=== PATIENT | female | born 1975 | race Caucasian/White ===

== ENCOUNTER 2019-05-06 11:36 | Emergency (ER) | payer OTHER, SELFPAY ==
[2019-05-06 11:37] VITALS: BP 215/118; PULSE 107; RESP 19; TEMP 37.1; O2SAT 98; BMI 22.4
--- NOTE | 2019-05-06 11:47 | US_ITS ---
STUDY: ABDOMINAL ULTRASOUND - RIGHT UPPER QUADRANT REASON FOR VISIT: Female, 43 years old 3 day history of epigastric pain. TECHNIQUE: Ultrasound evaluation of the right upper quadrant was performed with real-time and static lugo-scale imaging. TECHNICAL QUALITY: Adequate. COMPARISON: None. FINDINGS: Liver: The liver measures 17.0 cm. There is normal echogenicity of the liver. The bile ducts are within normal limits. There is hepatic color flow. The direction of portal flow is hepatopetal. There is no demonstrated mass lesion. Gallbladder: Normal distended gallbladder. The gallbladder wall measures 2.8 mm. There is a negative sonographic España's sign. There is no pericholecystic fluid. There are no gallstones. Common Bile Duct (C.B.D.): The common bile duct measures 3 mm. Pancreas: Normal size of the head, body and tail of the pancreas. There is normal echogenicity of the pancreas. There is no demonstrated pancreatic mass or cyst. Right Kidney: Normal size of the right kidney. The right kidney measures 12.6 cm x 6.8 cm x 3.9 cm. Normal renal cortex. The right cortex measures 1.2 cm. There is a 1.6 cm x 1.4 cm x 0.9 cm right renal cyst. There is no right hydronephrosis. US/Abdomen Limited IMPRESSION: Right renal cyst. Electronically Signed: Santos Espitia, at 13:29 EDT , Service support ,
--- NOTE | 2019-05-06 11:47 | EKG12_ITS ---
Test Reason : ABD PAIN Blood Pressure : / mmHG Vent. Rate : 096 BPM Atrial Rate : 096 BPM P-R Int : 160 ms QRS Dur : 100 ms QT Int : 352 ms P-R-T Axes : 060 022 049 degrees QTc Int : 444 ms Normal sinus rhythm Normal ECG Confirmed by PAMELA PRIEST ([id number]), telegraph editor MANJULA RODRIGUEZ ([id number]) on 05/13/2019 9:08:37 AM Referred By: JON Confirmed By:PAMELA PRIEST
--- NOTE | 2019-05-06 12:07 | ED.VIS.GEN ---
History of Present Illness Chief Complaint: Abd Pain Informant: Patient Onset: Days Context: Gradual Onset Timing: Continuous Current Severity: Moderate Maximum Severity: Moderate Narrative: The patient presents to the emergency department nausea, midepigastric pain in the right upper quadrant, and generalized illness for the past 3 days. States she was began on Monday. She states she had a burning pain in the midepigastric area and right upper quadrant. She states that it decreased in frequency, but then returned over the past 24 hours. She has not had any vomiting. She does not think she had fever. She states that she gets pain almost immediately if she drinks. She states she will occasionally use alcohol but denies any recent alcohol use. She is had prior history of and tubal ligation, but no other abdominal surgery. Prior similar symptoms: No Recent Illness/Hospitalization: No Past Medical History - Allergies and Home Meds Allergies/Adverse Reactions: Allergies No Known Allergies Allergy (Verified 05/06/19 11:37) Primary Care Physician: Ashley Mendez MD [STAFF PHYSICIAN] - Prior records reviewed: Yes Past Medical History: - - , hypertension Surgical History: - Review of Systems General: Denies: Chills, Fever, Sweats Eyes: Denies: Visual changes - bilaterally, Diplopia ENT: Denies: Rhinorrhea, Sore throat Cardiovascular: Denies: Chest pain, Palpitations Respiratory: Denies: Dyspnea, Cough, Dyspnea on exertion Gastrointestinal: Reports: Abdominal pain, Nausea, Vomiting. Denies: Diarrhea, Melena, Hematochezia Genitourinary: Denies: Dysuria, Hematuria, Frequency Musculoskeletal: Denies: Back pain, Extremity Pain Skin: Denies: Rash, Wounds Neurological: Denies: Headache, Weakness, Numbness Physical Exam Vital Signs/Narrative: Vital Signs Temp Pulse Resp BP Pulse Ox 05/06/19 11:37 98.8 F 107 H 19 H 215/118 H 98 Inital Vital Signs reviewed: Yes General: Well nourished, Well developed, No Acute Distress Head: Normocephalic, Atraumatic Eyes: Perrl, EOMI ENT: Moist mucous membranes, No rhinorrhea Neck: Supple, Nontender Cardiovascular: Regular rate, Regular rhythm, No murmurs Respiratory: No distress, CTA bilaterally, Chest nontender Abdomen: Soft, Nondistended, Normal bowel sounds, Tender, España's sign. Negative for: Guarding, Rebound tenderness Back: Nontender, Normal Inspection Extremities: Nontender, No edema Skin: Normal color, No rash Neurological: Alert, Oriented x3, Cranial nerves II-XII grossly intact, Normal Strength, Normal Sensation Psychological: Normal affect, Normal Mood Diagnostic/Tx/Re-eval Clinical Impression(s) from Imaging Studies Abdomen Ultrasound 05/06/19 11:47 IMPRESSION: Right renal cyst. Electronically Signed: Santos Chatmanmeliton, at 13:29 EDT , Service support , Abdomen/Pelvis CT 05/06/19 13:47 IMPRESSION: Prominence of the periportal markings suggestive of periportal edema seen in hepatitis. Clinical correlation is recommended. Heterogeneous enlargement of the uterus as described. Correlation with ultrasound the pelvis is recommended. Electronically Signed: Santos Nupur, at 15:05 EDT , Service support , Abnormal Lab Results 05/06/19 05/06/19 05/06/19 12:15 12:20 12:20 WBC 7.8 RBC 4.07 L Hgb 13.9 Hct 41.6 MCV 102.2 H MCH 34.2 H MCHC 33.4 RDW Std Deviation 45.0 H RDW Coeff of Nick 11.9 Plt Count 244 MPV 9.4 Immature Gran % (Auto) 0.300 Neut % (Auto) 62.7 Lymph % (Auto) 26.1 Mellette % (Auto) 6.5 Eos % (Auto) 3.9 Baso % (Auto) 0.5 Absolute Neuts (auto) 4.9 Absolute Lymphs (auto) 2.03 Nucleated RBC % 0 Sodium 142 Potassium 3.2 L Chloride 109 H Carbon Dioxide 28.0 Anion Gap 5 BUN 13 Creatinine 0.75 Estim Creat Clear Calc 85.24 Est GFR (MDRD) Af Amer 108 Est GFR (MDRD) Non-Af 89 BUN/Creatinine Ratio 17.4 Glucose 118 H Calcium 8.8 Total Bilirubin 0.20 Direct Bilirubin 0.06 AST 17 ALT 17 Alkaline Phosphatase 62 Total Protein 6.6 Albumin 3.7 Globulin 2.9 Lipase 230 Urine Color Yellow Urine Clarity Sl. Cloudy Urine pH 6.0 Ur Specific Wilmore 1.020 Urine Protein 30 H Urine Glucose (UA) Normal Urine Ketones Negative Urine Occult Blood 25 H Urine Nitrite Negative Urine Bilirubin Negative Urine Urobilinogen Normal Ur Leukocyte Esterase Negative Urine RBC 0-5 SEEN Urine WBC 0 SEEN Ur Squamous Epith Cells 0 SEEN Urine Bacteria RARE Urine Mucus 1+ - Medical Decision Making The patient presents with midepigastric pain in the right upper quadrant. She was nauseated without vomiting. She states this feels like her hiatal hernia. She had a questionable España sign on examination and still has a gallbladder. IV was established. She was given analgesics and antiemetics. She is some improvement of pain. Labs obtained. Her liver functions are normal. Bilirubin is normal. Ultrasound shows no evidence of acute cholecystitis or other acute process within the right upper quadrant. Given her persistent pain, I did obtain CT imaging. There was question of periportal edema, the patient was aggressively prior to this and I feel that this is likely secondary to the fluids as there is no changes in her liver functions. With a GI cocktail, she is feeling improved. At this point I do feel the patient is safe for outpatient therapy. She will be treated with antiemetics and antispasmodics and be given outpatient surgical follow-up. She was counseled concerning symptoms and reasons to return. She will be discharged home. Impression 1. Midepigastric abdominal pain ED Disposition - Plan for ED Patient: Disposition: Home or Assisted Living Instructions: GASTRITIS vs. ULCER Prescriptions: Dicyclomine HCl [Bentyl] 20 mg PO TIDAC #20 cap Prescription Printed Famotidine [Pepcid] 20 mg PO BID #28 tab Prescription Printed Referrals: Ashley Mendez MD [STAFF PHYSICIAN] -
[2019-05-06] MEDS: Ketorolac 30 MG/ML Syringe IV (12:19)
[2019-05-06] MEDS: Ondansetron 4 MG/2 ML Vial IV (12:19)
[2019-05-06] MEDS: 0.9% Normal Saline 1,000 ML 1000 ML IV (12:19)
[2019-05-06] MEDS: Morphine 4 MG/ML Syringe IV ×2 (12:19→13:54)
[2019-05-06 12:32] LABS: Squamous Epithelial Cells - UA 0 SEEN /hpf (5-10); White Blood Cells 0 SEEN /hpf (0-5)
[2019-05-06 12:43] LABS: Absolute Lymphocyte Count 2.03 X10^3/uL (0.83-4.51); Absolute Neutrophil Count 4.9 X10^3/uL (2.0-7.7); Basophil# 0.04 X10^3/uL; Basophil% 0.5 % (0-1); Eosinophils% 3.9 % (0-5); Hematocrit 41.6 % (37-47); Hemoglobin 13.9 g/dL (12.0-15.0); Lymphocyte # 2.03 X10^3/ul (4.0); Lymphocyte % 26.1 % (19-41); Mean Corp Hgb Conc 33.4 g/dL (32-36); Mean Corpuscular Hgb 34.2 pg (27.0-32.0); Mean Corpuscular Volume 102.2 fL (81-99); Mean Platelet Vol. 9.4 fl (6.2-12.0); Monocyte# 0.51 X10^3/uL; Monocyte% 6.5 % (0-10); NRBC Flagged by Analyzer 0 % (0-5); Neutrophil # 4.89 X10^3/uL (2.7-7.7); Neutrophil % 62.7 % (47-70); Platelet Count 244 K/mm3 (150-450); RBC Distribution Width CV 11.9 % (11.6-14.6); Red Blood Count 4.07 M/mm3 (4.2-5.4); White Blood Count 7.8 K/mm3 (4.4-11.0)
[2019-05-06 12:43] LABS: Color, Urine Yellow (Yellow); Glucose, Dipstick Normal (Normal); Ketone-Dipstick Negative (Negative); Leukocyte Esterase-Dipstick Negative /ul (Negative); Nitrite-Dipstick Negative (Negative); Occult Blood-Urine 25 /ul (Negative); Protein-Dipstick 30 mg/dl (Negative); Urine Bilirubin Dipstick Negative (Negative); Urine Clarity Sl. Cloudy (Clear); Urine Urobilinogen Normal (Normal)
[2019-05-06 12:48] LABS: Bacteria RARE /hpf (None Seen); Mucous, Urine 1+ /hpf (<or=2+); Red Blood Cells-Urine 0-5 SEEN /hpf (0-5)
[2019-05-06 13:00] LABS: AST(SGOT) 17 U/L (15-37); Alanine Aminotransfer ALT/SGPT 17 U/L (13-56); Albumin, Serum 3.7 g/dL (3.2-5.0); Alkaline Phosphatase 62 U/L (45-117); Anion Gap 5 (5-15); BUN 13 mg/dL (7-18); BUN/Creat Ratio 17.4 RATIO (10-20); Bilirubin, Direct 0.06 mg/dL (0.00-0.30); Calcium,Total 8.8 mg/dL (8.5-10.1); Chloride 109 mmol/L (98-107); Creatinine, Serum 0.75 mg/dL (0.55-1.02); EST Glomerular Filtration Rate 89 mL/min (>60); Est Glom Filt Rate - Afr Amer 108 mL/min (>60); Estimated Creatinine Clearance 85.24 ml/min; Globulin 2.9 g/dL (2.2-4.2); Glucose 118 mg/dL (74-106); Lipase 230 U/L (73-393); Potassium 3.2 mmol/L (3.5-5.1); Protein, Total 6.6 g/dL (6.4-8.2); Sodium Level 142 mmol/L (136-145)
[2019-05-06 13:01] VITALS: BP 177/102; PULSE 82; RESP 16; O2SAT 97
--- NOTE | 2019-05-06 13:47 | CT_ITS ---
STUDY: CT ABDOMEN AND PELVIS WITH CONTRAST REASON FOR EXAM: Female, 43 years old. Epigastric pain. RADIATION DOSAGE (If Supplied By Facility): CTDIvol = ( 9.08 ) mGy, DLP = ( 399.99 ) mGycm TECHNIQUE: Transaxial images were obtained from the dome of the diaphragm to the symphysis pubis without oral contrast. IV Isovue 300 100 was administered. Sagittal and coronal images were reconstructed. Individualized dose optimization techniques were used for this CT. COMPARISON: None. FINDINGS: Minimal degree of increased markings at the lung bases suggestive of atelectasis. The visualized portions of the heart are within normal limits. Prominent periportal markings. This is suggestive of edematous change most likely secondary to hepatitis. Clinical correlation is recommended. Normal gallbladder and extrahepatic biliary system. Normal spleen. Normal pancreas. Normal bilateral adrenal glands. There is a 1.57 m cyst in the lower pole of the right kidney. Normal left kidney. Normal visualized stomach. Normal small intestine. Normal colon. The appendix is visualized and appears normal. There is scattered atherosclerotic calcification of the abdominal aorta, without a demonstrated aneurysm. Normal inferior vena cava. Normal retroperitoneum. Normal urinary bladder. Enlarged heterogeneous appearance of the uterus. Within the uterus, there is a 1.7 cm x 2.2 cm cystic change. This may represent endometrial thickening. Increased vascularity is seen along the left side of the uterus suggestive of a varicosities. Correlation with ultrasound of the pelvis is recommended for further evaluation. There is evidence of a 1.9 Suresh dominant follicle in the right ovary. Normal abdominal wall. Normal osseous structures. CT/Abdomen/Pelvis W IV Cont ONLY IMPRESSION: Prominence of the periportal markings suggestive of periportal edema seen in hepatitis. Clinical correlation is recommended. Heterogeneous enlargement of the uterus as described. Correlation with ultrasound the pelvis is recommended. Electronically Signed: Santos Espitia, at 15:05 EDT , Service support ,
[2019-05-06] MEDS: Mag Hydrox/Al Hydrox/Simeth 30 ML UDC PO (13:54)
[2019-05-06 15:56] VITALS: BP 193/110; PULSE 78; RESP 14; O2SAT 97
== END 2019-05-06 15:57 | disposition home or self-care (01) ==
PROVIDERS: Emergency Provider Emergency Medicine
DX: R10.13 Epigastric pain (principal); I10 Essential (primary) hypertension
CPT/HCPCS: 74177; 76705; 80048; 80076; 81001; 83690; 85025; 93005; 96361; 96374; 96375; 96376; 99284; J7030; Q9967; A4216; J2405

== ENCOUNTER → 2019-05-27 | Outpatient (CLI) | payer OTHER, SELFPAY ==
[2019-05-22 16:15] VITALS: BMI 22.9
--- NOTE | 2019-05-27 14:18 | EKG12_ITS ---
Test Reason : HTN Blood Pressure : / mmHG Vent. Rate : 086 BPM Atrial Rate : 086 BPM P-R Int : 146 ms QRS Dur : 098 ms QT Int : 364 ms P-R-T Axes : 067 015 044 degrees QTc Int : 435 ms Normal sinus rhythm Possible Left atrial enlargement Borderline ECG Confirmed by AMOR BLACKWELL, KATTY ([id number]), supervising editor trailer HARPREET DAVIS ([id number]) on 05/28/2019 11:48:31 AM Referred By: Mateo Whitaker Confirmed By:KATTY CHINCHILLA MD
[2019-05-27 15:17] LABS: Anion Gap 9 (5-15); BUN 18 mg/dL (7-18); BUN/Creat Ratio 18.8 RATIO (10-20); Calcium,Total 8.8 mg/dL (8.5-10.1); Chloride 108 mmol/L (98-107); Creatinine, Serum 0.96 mg/dL (0.55-1.02); EST Glomerular Filtration Rate 67 mL/min (>60); Est Glom Filt Rate - Afr Amer 81 mL/min (>60); Glucose 112 mg/dL (74-106); Potassium 3.3 mmol/L (3.5-5.1); Sodium Level 143 mmol/L (136-145); Thyroid Stim Hormone (TSH) 0.58 uIU/mL (0.358-3.74)
[2019-05-27 15:18] LABS: Vitamin B12 345 pg/mL (211-911)
== END | disposition home or self-care (01) ==
PROVIDERS: Family Provider Internal Medicine; PCP Internal Medicine; Referring Provider Internal Medicine; Visit Provider Internal Medicine
DX: I10 Essential (primary) hypertension (principal); D53.9 Nutritional anemia, unspecified
CPT/HCPCS: 36415; 80048; 82607; 84439; 84443; 93005

== ENCOUNTER 2019-06-05 07:47 | Day surgery (SDC) | payer OTHER, SELFPAY ==
--- NOTE | 2019-05-22 03:47 | HP_ITS ---
Intake Vital Signs 05/22/19 Body Mass Index (BMI) 22.4 05/22/19 Height 5 ft 5 in 05/22/19 Weight: 135 lb 3 oz 05/22/19 Body Mass Index (BMI) 22.4 05/22/19 Blood Pressure 220/142 H 05/22/19 Blood Pressure Location Rt brachial 05/22/19 Blood Pressure Position Sitting 05/22/19 Respiratory Rate 20 H 05/22/19 Pulse Rate 99 05/22/19 Pulse Ox 98 Intake Visit Reasons: 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 Is patient in pain?: No Allergies No Known Allergies Allergy (Verified 05/22/19 15:01) Medications Dicyclomine HCl [Bentyl] 20 mg PO TIDAC #20 cap 05/06/19 [Rx Confirmed 05/22/19] Famotidine [Pepcid] 20 mg PO BID #28 tab 05/06/19 [Rx Confirmed 05/22/19] pantoprazole 40 mg tablet,delayed release 40 mg PO DAILY #30 tab 05/22/19 [Rx Confirmed 05/22/19] sucralfate 1 gram tablet 1 g PO QACHS #120 tab 05/22/19 [Rx Confirmed 05/22/19] Is last menstrual period known: No Post menopausal: No Patient : No PFSH Medical History (Updated 05/22/19 @ 15:38 by Ashley Mendez MD) Anemia (Acute) Anxiety (Acute) Black stool (Acute) GERD (gastroesophageal reflux disease) (Acute) Hemorrhoid (Acute) History of amputation of finger (Acute) History of cervical cancer (Acute) History of gastric ulcer (Acute) Osteoarthritis (Acute) HTN (hypertension) (Chronic) HTN (hypertension) (Chronic) Surgical History (Updated 05/22/19 @ 15:24 by Zayda Valdivia) History of section (Acute) History of colonoscopy (Acute) History of esophagogastroduodenoscopy (EGD) (Acute) History of loop electrical excision procedure (LEEP) (Acute) Family History (Updated 05/22/19 @ 15:00 by Zayda Valdivia) Mother Colon cancer Diabetes Heart disease Asthma Bleeding disorder Hypertension Daughter Seizures CVA (cerebral vascular accident) Social History (Updated 05/22/19 @ 15:47 by Ashley Mendez MD) Smoking Status: Current every day smoker HPI HPI HPI: MIGUEL CAST, is a 43 F who presents to the office today for HPI HPI Surgical H&P: Yes HPI: MIGUEL CAST, is a 43 F who presents to the office today for epigastric pain and nausea. Patient was seen in the ER had a CT abdomen pelvis done which showed heterogeneous enlargement of the uterus with 1.7 cm x 2.27-year cystic change and some prominence of the zita-portal markings suggestive of periportal edema that could be seen in hepatitis. Patient states she previously had an EGD and colonoscopy in in [place], [place] which showed per patient ulcers, hiatal hernia and she also had colon polyps. Patient's mom was diagnosed with colon cancer age 57. Patient was due to follow-up 2 years after the previous colonoscopy however she did not make her follow-up. Patient had previously been on Carafate as well as Nexium she has not had a PCP or insurance for a while so she has had not been on that for very long. Patient was taking some Zantac and then she went to the ER she got some Pepcid but currently she is out. Patient states she does have bowel movements daily states they are black in color however patient does admit to taking Pepto-Bismol daily. Patient does admit to increased satiety and bloating feeling. Patient states that when she was taking the Zantac it did help some but did not completely take away the epigastric pain. Patient does also states she has a history of cervical cancer about 20 years ago and had a LEEP procedure done. Patient did see an COMPUTER FORENSICS INVESTIGATOR about 3 years ago and had an abnormal Pap her she was not able to follow-up, this was done in [place]. Patient states she does have pelvic pain that 5?6/10 but when she is on her. She rates the pain at a 10+ as she does have a lot of bleeding with her. She was initially being worked up for hysterectomy. Patient also was previously on pantoprazole 60 mg p.o. twice daily for her high blood pressure which she has not been on for a while due to insurance/no PCP. Currently her blood pressure in the office is 220/142. ROS General General: Yes fatigue; no weight change, colon cancer, breast cancer or weakness HEENT HEENT: No difficulty swallowing, eye injury, eye surgery, swollen glands or hoarseness Endo Endocrine: No thyroid disease, diabetes mellitus, thyroid cancer, Hair loss, heat intolerance or cold intolerance Musc Musculoskeletal: Yes back problems and arthritis; no rheumatoid arthritis, gout or joint pain Cardio Cardiovascular: Yes high blood pressure; no murmur, pacemaker, heart disease, atrial fibrillation, heart attack, heart stent, palpitations, shortness of breat with exertion or chest pain Resp Respiratory: No shortness of breath, No sleep apnea, No cough, No COPD, No asthma, No emphysema, No wheezing Gastro Gastrointestinal: Yes abdominal pain, Yes nausea or vomiting, Yes diarrhea, Yes constipation, No blood in stool, Yes acid reflux, Yes hemorrhoids, Yes ulcers, No gallbladder problem, Yes black,tarry stools Shree Hematologic: No blood thinners, No blood disorders, No bleeding, Yes anemia, No blood clots Neuro Neurologic: No weakness Exam Const General: cooperative, no acute distress Resp Effort & Inspection: normal respiratory effort Cardio Rate: regular rate Heart Sounds: no murmurs GI Inspection: non-distended Palpation: soft, no guarding, tender in the epigastrum, in the RUQ and suprapubicly (pt on her menses) Assessment & Plan Problems 1. Epigastric pain R10.13 2. Hx of colonic polyps Z86.010 3. FH: colon cancer in first degree relative <60 years old Z80.0 4. HTN (hypertension) I10 Patient states she had previously been on propranolol 60 mg p.o. twice daily, does not have a primary care and currently not on any blood pressure meds patient's blood pressure in the office was 220/142 5. Hx of cervical malignancy Z85.41 Status post LEEP in [place] about 20 years ago 6. Abnormal Pap smear of cervix R87.619 3 years ago in [place] patient unable to follow-up Plan Will refer patient to [facility] for hypertension. Patient will have an appointment later today. Also plan to refer patient to COMPUTER FORENSICS INVESTIGATOR, will get records from last Pap?3 years ago?as well as previous EGD and colonoscopy from . Did discuss with patient that her blood pressure need to be improved prior to undergoing the procedures. We will also call in a prescription for Carafate as well as Protonix to [facility]. Patient states she has been having black tarry stool however patient has been taking Pepto-Bismol daily. I have discussed the above with the patient. I have offered the patient EGD and colonoscopy for evaluation. I have explained the risks/benefits of the procedure and described the procedure. I have discussed the risks with the patient, including but not limited to: infection, bleeding, perforation of the GI tract requiring emergency surgery, inability to complete the procedure, injury to any internal organs, complications of anesthesia, etc. - the patient understands and agrees to proceed. I have answered all the patient's questions to the patient's satisfaction and the patient has no further questions. The patient has been given instructions for the colon cleansing preparation. Greater than 50% of direct patient contact was spent in counseling or coordination of care. I spent 45 minutes counseling the patient and coordinating care. Ashley Mendez M.D. Pager: [phone] [facility] [address] [place] [address], [address] [place] [address] Office: [phone] Orders Orders: Colonoscopy Today EGD Today Medications New: pantoprazole 40 mg PO DAILY 30 tabs 3RF sucralfate Take 1 hour before meals and at bedtime 1 g PO QACHS 120 tabs 0RF Plan Detail Follow Up Will schedule EGD and colonoscopy, patient has appointment with internal medicine today, will also refer to COMPUTER FORENSICS INVESTIGATOR Coding Level of Care Code Off vis,new,level 4 Diagnoses Epigastric pain R10.13 Hx of colonic polyps Z86.010 FH: colon cancer in first degree relative <60 years old Z80.0 HTN (hypertension) I10 Hx of cervical malignancy Z85.41 Abnormal Pap smear of cervix R87.619 05/22/19 1547 <Electronically signed by Ashley Hernandez am, MD> Date _ Ashley Mendez MD I have examined the patient the following changes are noted: Patient has been taking her Protonix p.o. daily still states she has the epigastric pain and occasional nausea, states she still has early satiety and does not eat a lot when she does eat. Patient denies any more black stools she has not been taking the Pepto-Bismol anymore. Patient's last colonoscopy was in October 2013 which she did have 2 hyperplastic polyps removed and hemorrhoids noted, EGD did show superficial ulcers near the pylorus at that time as well.
[2019-05-22 16:15] VITALS: BMI 22.9
[2019-05-29 15:05] VITALS: BMI 22.9
[2019-06-05] VITALS (8 sets, daily range): BP systolic 103–147; BP diastolic 60–89; PULSE 66–79; RESP 14–16; TEMP 36.3–36.7; O2SAT 99–100; BMI 21.9
[2019-06-05] MEDS: Lactated Ringers 1,000 ML 100 ML IV (08:19)
--- NOTE | 2019-06-05 08:45 | IMM_PTH ---
PATIENT: MIGUEL CAST LOC: EN U#:[id number] AGE/SX: 43/F ROOM: RE06/05/[address]: Dr. Ashley Mendez MD : 1975 BED: DIS: 06/05/2019 SPEC #: [id number] RECD: 06/05/19 14:40 STATUS: NABIL REQ #: [id number] FOUZIA: 06/05/19 08:[address]: Ashley Mendez DEPT: IMMUNOHISTOCHEMISTRY RECD BY: Rach Moncada ENTERED: 06/05/19 14:42 SP TYPE: IMMUNO OTHR DR: Dr. Mateo Whitaker MD Tissues: A - Stomach, NOS Procedures: H Pylori (initial) PHYSICIAN & INSTITUTION [place] [id number] SPECIMEN INFORMATION: Tissue Source: A - Antrum biopsy Clinical Info: Epigastric pain, colonic polyp history Specimen Number: [id number] CPT code: 68196 METHODOLOGY: Deparaffinized sections of prefer/formalin-fixed tissue or PAP/DQ stained slides are incubated with monoclonal/polyclonal antibodies/oligonucleotide probes. Localization is made via biotin free immunoperoxidase method. Appropriate controls are performed and reacted as expected. Results on target cell population are indicated in the following table: RESULTS: ANTIBODY / CLONE RESULT Block A H Pylori (polyclonal) negative These tests were developed and their performance characteristics determined by [facility]. They may not have been cleared or approved by the U.S. Food and Drug Administration. The FDA has determined that such clearance or approval is not necessary. INTERPRETATION: A. Antrum biopsy: Negative for Helicobacter pylori organisms. SJ:blayne 06/07/19
--- NOTE | 2019-06-05 08:45 | EGD_PTH ---
PATIENT: MIGUEL CAST LOC: EN U#:[id number] AGE/SX: 43/F ROOM: RE06/05/[address]: Dr. Ashley Mendez MD : 1975 BED: DIS: 06/05/2019 SPEC #: [id number] RECD: 06/05/19 14:03 STATUS: NABIL SHRUTHI #: [id number] FOUZIA: 06/05/19 08:[address]: Ashley Mendez DEPT: SURGICAL PATHOLOGY RECD BY: Gregory Gibson ENTERED: 06/05/19 14:33 SP TYPE: EGD BIOPSY OT DR: Dr. Mateo Whitaker MD Tissues: A - Gastric mucous membrane B - Gastric mucous membrane C - Gastric mucous membrane D - Gastric mucous membrane Procedures: Special Stain Group II Surgery Specimen Level IV Alcian Blue/PAS (control) HEADER OPERATION: Colonoscopy, EGD ([facility]) PRE-OP DIAGNOSIS: Epigastric pain, history of colonic polyp TISSUE SUBMITTED: A. Antrum biopsy for H. pylori and path, B. Gastric body biopsy, C. GE junction biopsy, D. Biopsy near appendiceal orifice MICROSCOPIC DIAGNOSIS A. Antrum biopsy: Mild gastritis. See microscopic description and comment. B. Gastric body, biopsy: Mild gastritis. See microscopic description. C. GE junction, biopsy: Fragments of gastric mucosa with mild chronic inflammation. Intestinal metaplasia (goblet cell metaplasia) is not identified. See comment. D. Biopsy near appendiceal orifice: A fragment of colonic mucosa, no pathologic diagnosis. SJ:blayne 06/07/19 COMMENT A. The results of immunohistochemistry for Helicobacter pylori will be reported separately ([id number]). C. Alcian blue/PAS stain with matched control is used in the evaluation of the specimen. MICROSCOPIC DESCRIPTION Slides are reviewed. A & B. The specimen shows fragments of gastric mucosa with chronic inflammatory cell infiltrates in the lamina propria consisting of lymphocytes and plasma cells, consistent with mild chronic gastritis. GROSS DESCRIPTION A - Received in fixative is one container labeled with the patient's name and designated antrum biopsy. The specimen consists of two irregular fragments of light anne soft tissue that in aggregate measure 0.6 x 0.3 x 0.1 cm. The specimen is totally submitted in one cassette. B - Received in fixative is one container labeled with the patient's name and designated gastric body biopsy. The specimen consists of one irregular fragment of light anne soft tissue that measures 0.3 x 0.3 x 0.1 cm. The specimen is totally submitted in one cassette. C - Received in fixative is one container labeled with the patient's name and designated GE junction. The specimen consists of two irregular fragments of light anne soft tissue that in aggregate measure 0.6 x 0.3 x 0.1 cm. The specimen is totally submitted in one cassette. D - Received in fixative is one container labeled with the patient's name and designated biopsy near appendiceal orifice. The specimen consists of one irregular fragment of light anne soft tissue that measures 0.4 x 0.3 x 0.1 cm. The specimen is totally submitted in one cassette. / SJ:rg 06/05/19 TC: CPT: 53256 x4, 28637
--- NOTE | 2019-06-05 10:21 | OP.COLON_ITS ---
Patient Name: Shonna Knight Procedure Date: 06/05/2019 9:32 AM Date of : 1975 Age: 43 Procedure: Colonoscopy Indications: Screening in patient at increased risk: Family history of 1st-degree relative with colorectal cancer before age 60 years, High risk colon cancer surveillance: Personal history of colonic polyps Providers: Ashley Mendez MD Referring MD: Ashley Mendez MD Medicines: Monitored Anesthesia Care Patient Profile: This is a 43 year old female. Last Colonoscopy: 5 years ago. Complications: No immediate complications. Procedure: Pre-Anesthesia Assessment: - Prior to the procedure, a History and Physical was performed, and patient medications and allergies were reviewed. The patient's tolerance of previous anesthesia was also reviewed. The risks and benefits of the procedure and the sedation options and risks were discussed with the patient. All questions were answered, and informed consent was obtained. Prior Anticoagulants: The patient has taken no previous anticoagulant or antiplatelet agents. ASA Grade Assessment: II - A patient with mild systemic disease. After reviewing the risks and benefits, the patient was deemed in satisfactory condition to undergo the procedure. After I obtained informed consent, the scope was passed under direct vision. Throughout the procedure, the patient's blood pressure, pulse, and oxygen saturations were monitored continuously. The colonoscope was introduced through the anus and advanced to the cecum, identified by appendiceal orifice and ileocecal valve. The colonoscopy was technically difficult and complex due to a redundant colon. Successful completion of the procedure was aided by applying abdominal pressure. Scope In: 9:35:36 AM Scope Withdrawal Time 0 hours 10 minutes 49 seconds Scope Out: 10:12:25 AM Total Procedure Duration Time 0 hours 36 minutes 49 seconds Findings: Hemorrhoids were found on perianal exam. A localized area of mildly erythematous mucosa was found appendiceal orifice. This was biopsied with a cold forceps for histology. Multiple small-mouthed diverticula were found in the sigmoid colon and descending colon. Non-bleeding external and internal hemorrhoids were found. The hemorrhoids were Grade I (internal hemorrhoids that do not prolapse). The exam was otherwise without abnormality. Impression: - Hemorrhoids found on perianal exam. - Erythematous mucosa at the appendiceal orifice. Biopsied. - Diverticulosis in the sigmoid colon and in the descending colon. - Non-bleeding external and internal hemorrhoids. - The examination was otherwise normal. Recommendation: - Discharge patient to home. - Resume previous diet. - Continue present medications. - Await pathology results. - Repeat colonoscopy in 5 years for surveillance. Procedure Code(s): --- Professional --- 76871, Colonoscopy, flexible; with biopsy, single or multiple Diagnosis Code(s): --- Professional --- Z80.0, Family history of malignant neoplasm of digestive organs Z86.010, Personal history of colonic polyps K64.0, First degree hemorrhoids K63.89, Other specified diseases of intestine K57.30, Diverticulosis of large intestine without perforation or abscess without bleeding CPT copyright 2017 [employer]. All rights reserved. The codes documented in this report are preliminary and upon physician coder review may be revised to meet current compliance requirements. MD Ashley Garcia MD 06/05/2019 10:21:22 AM This report has been signed electronically. Number of Addenda: 0 Note Initiated On: 06/05/2019 9:32 AM
--- NOTE | 2019-06-05 10:26 | OP.EGD_ITS ---
Patient Name: Shonna Knight Procedure Date: 06/05/2019 9:06 AM Date of : 1975 Age: 43 Procedure: Upper GI endoscopy Indications: Epigastric abdominal pain, Abdominal pain in the left upper quadrant, Personal history of peptic ulcer disease Providers: Ashley Mendez MD Referring MD: Ashley Mendez MD Medicines: Monitored Anesthesia Care Patient Profile: This is a 43 year old female. Complications: No immediate complications. Procedure: Pre-Anesthesia Assessment: - Prior to the procedure, a History and Physical was performed, and patient medications and allergies were reviewed. The patient's tolerance of previous anesthesia was also reviewed. The risks and benefits of the procedure and the sedation options and risks were discussed with the patient. All questions were answered, and informed consent was obtained. Prior Anticoagulants: The patient has taken no previous anticoagulant or antiplatelet agents. ASA Grade Assessment: II - A patient with mild systemic disease. After reviewing the risks and benefits, the patient was deemed in satisfactory condition to undergo the procedure. After obtaining informed consent, the endoscope was passed under direct vision. Throughout the procedure, the patient's blood pressure, pulse, and oxygen saturations were monitored continuously. The gastroscope was introduced through the mouth, and advanced to the second part of duodenum. The upper GI endoscopy was accomplished without difficulty. The patient tolerated the procedure well. Scope In: 9:22:12 AM Scope Out: 9:32:38 AM Total Procedure Duration Time 0 hours 10 minutes 26 seconds Findings: The Z-line was irregular. Biopsies were taken with a cold forceps for histology. Seven non-bleeding superficial gastric ulcers with no stigmata of bleeding were found in the gastric body and in the gastric antrum. The largest lesion was 5 mm in largest dimension. Biopsies were taken with a cold forceps for histology. Moderately erythematous mucosa without bleeding was found in the gastric antrum. Biopsies were taken with a cold forceps for histology. Biopsies were taken with a cold forceps for Helicobacter pylori cultures. The examined duodenum was normal. Impression: - Z-line irregular. Biopsied. - Non-bleeding gastric ulcers with no stigmata of bleeding. Biopsied. - Erythematous mucosa in the antrum. Biopsied. - Normal examined duodenum. Recommendation: - Await pathology results. - Discharge patient to home. - Use sucralfate tablets 1 gram PO QID for 1 month. - Use Nexium (esomeprazole) 40 mg PO daily. - Continue present medications. - No aspirin, ibuprofen, naproxen, or other non-steroidal anti-inflammatory drugs for 5 days after biopsy. Procedure Code(s): --- Professional --- 20707, Esophagogastroduodenoscopy, flexible, transoral; with biopsy, single or multiple Diagnosis Code(s): --- Professional --- K22.8, Other specified diseases of esophagus K25.9, Gastric ulcer, unspecified as acute or chronic, without hemorrhage or perforation K31.89, Other diseases of stomach and duodenum R10.13, Epigastric pain R10.12, Left upper quadrant pain Z87.11, Personal history of peptic ulcer disease CPT copyright 2017 [employer]. All rights reserved. The codes documented in this report are preliminary and upon photonics engineering technician review may be revised to meet current compliance requirements. MD Ashley Garcia MD 06/05/2019 10:26:05 AM This report has been signed electronically. Number of Addenda: 0 Note Initiated On: 06/05/2019 9:06 AM
== END 2019-06-05 11:03 | disposition home or self-care (01) ==
LOC: EN 07:47 → AC 07:49
PROVIDERS: Family Provider Internal Medicine; PCP Internal Medicine; Referring Provider Surgery; Visit Provider Surgery
PROC: 0DJD8ZZ Inspection of Lower Intestinal Tract, Via Natural or Artificial Opening Endoscopic (ICD-10-PCS; CPT 45378; principal; 2019-06-05 08:40)
DX: K29.70 Gastritis, unspecified, without bleeding (principal); K25.9 Gastric ulcer, unspecified as acute or chronic, without hemorrhage or perforation; Q43.8 Other specified congenital malformations of intestine; K57.30 Diverticulosis of large intestine without perforation or abscess without bleeding; K64.0 First degree hemorrhoids; K21.9 Gastro-esophageal reflux disease without esophagitis; Z80.0 Family history of malignant neoplasm of digestive organs; F41.9 Anxiety disorder, unspecified; I10 Essential (primary) hypertension; M19.90 Unspecified osteoarthritis, unspecified site; F17.200 Nicotine dependence, unspecified, uncomplicated; Z85.41 Personal history of malignant neoplasm of cervix uteri; Z86.010 Personal history of colon polyps; Z79.899 Other long term (current) drug therapy
CPT/HCPCS: 43239; 45380; 88305; 88313; 88342; J7120; J2405

== ENCOUNTER → 2019-06-13 15:13 | Outpatient (CLI) | payer OTHER, SELFPAY ==
[2019-06-05 08:02] VITALS: BMI 21.9
--- NOTE | 2019-06-13 15:15 | US_ITS ---
STUDY: ULTRASOUND OF THE FEMALE PELVIS - COMPLETE REASON FOR EXAM: Female, [address] LMP: Unknown. TECHNIQUE: Transabdominal and Transvaginal TECHNICAL QUALITY: Adequate. COMPARISON: None. FINDINGS: The uterus is anteverted and is in a midline position. The uterus measures 11.9 x 7.7 x 5.0 cm. There are cervical nabothian cysts. The endometrium measures 3 mm in thickness, and is hyperechoic. There is an echogenic focus with hypoechoic center of the mid uterus measuring 2.4 x 2.1 x 1.2 cm. There is a fundal fibroid measuring 2.5 x 2.7 x 2.1 cm. I.U.D. - The patient does not have an I.U.D. The right ovary is visualized. The right ovary measures 3.0 x 1.8 x 1.2 cm. There is no right ovarian cyst or ovarian mass. There is no visualized right adnexal mass or complex lesion. There is normal arterial and normal venous vascularity. The left ovary is visualized. The left ovary measures 3.1 x 2.6 x 1.8 cm. There is a 1.2 x 1.2 x 0.6 cm left ovarian cyst. There is increased vascularity of the left adnexa. There is normal arterial and normal venous vascularity. There is no fluid in the cul-de-sac. The pre void volume of the bladder was 543 ml. Polycystic ovary disease: No. US/Transvaginal Non- IMPRESSION: 1. Fundal fibroid measuring 2.5 x 2.7 x 2.1 cm. 2. There is an echogenic focus with hypoechoic center of the mid uterus measuring 2.4 x 2.1 x 1.2 cm. This is of unknown etiology or significance. This corresponds to abnormality seen on recent CT study. 3. 1.2 x 1.2 x 0.6 cm left ovarian cyst. 4. There is increased vascularity of the left adnexa. Electronically Signed: Rosales Gongora MD at 22:52 EST , Service support ,
--- NOTE | 2019-06-13 15:15 | US_ITS ---
STUDY: ULTRASOUND OF THE FEMALE PELVIS - COMPLETE REASON FOR EXAM: Female, [address] LMP: Unknown. TECHNIQUE: Transabdominal and Transvaginal TECHNICAL QUALITY: Adequate. COMPARISON: None. FINDINGS: The uterus is anteverted and is in a midline position. The uterus measures 11.9 x 7.7 x 5.0 cm. There are cervical nabothian cysts. The endometrium measures 3 mm in thickness, and is hyperechoic. There is an echogenic focus with hypoechoic center of the mid uterus measuring 2.4 x 2.1 x 1.2 cm. There is a fundal fibroid measuring 2.5 x 2.7 x 2.1 cm. I.U.D. - The patient does not have an I.U.D. The right ovary is visualized. The right ovary measures 3.0 x 1.8 x 1.2 cm. There is no right ovarian cyst or ovarian mass. There is no visualized right adnexal mass or complex lesion. There is normal arterial and normal venous vascularity. The left ovary is visualized. The left ovary measures 3.1 x 2.6 x 1.8 cm. There is a 1.2 x 1.2 x 0.6 cm left ovarian cyst. There is increased vascularity of the left adnexa. There is normal arterial and normal venous vascularity. There is no fluid in the cul-de-sac. The pre void volume of the bladder was 543 ml. Polycystic ovary disease: No. US/Pelvic (Non ) IMPRESSION: 1. Fundal fibroid measuring 2.5 x 2.7 x 2.1 cm. 2. There is an echogenic focus with hypoechoic center of the mid uterus measuring 2.4 x 2.1 x 1.2 cm. This is of unknown etiology or significance. This corresponds to abnormality seen on recent CT study. 3. 1.2 x 1.2 x 0.6 cm left ovarian cyst. 4. There is increased vascularity of the left adnexa. Electronically Signed: Rosales Gongora MD at 22:52 EST , Service support ,
== END ==
LOC: US 15:14
PROVIDERS: Family Provider Internal Medicine; PCP Internal Medicine; Referring Provider Surgery; Visit Provider Surgery
DX: R93.89 Abnormal findings on diagnostic imaging of other specified body structures (principal); R87.619 Unspecified abnormal cytological findings in specimens from cervix uteri; Z85.41 Personal history of malignant neoplasm of cervix uteri
CPT/HCPCS: 76830; 76856; 93976

== ENCOUNTER → 2019-06-26 14:33 | Outpatient (CLI) | payer OTHER, SELFPAY ==
[2019-06-05 08:02] VITALS: BMI 21.9
[2019-06-26 15:49] LABS: Anion Gap 5 (5-15); BUN 16 mg/dL (7-18); BUN/Creat Ratio 19.9 RATIO (10-20); Calcium,Total 9.1 mg/dL (8.5-10.1); Chloride 108 mmol/L (98-107); EST Glomerular Filtration Rate 82 mL/min (>60); Est Glom Filt Rate - Afr Amer 99 mL/min (>60); Glucose 74 mg/dL (74-106); Potassium 3.4 mmol/L (3.5-5.1); Sodium Level 141 mmol/L (136-145)
== END ==
PROVIDERS: Family Provider Internal Medicine; PCP Internal Medicine; Referring Provider Internal Medicine; Visit Provider Internal Medicine
DX: E87.6 Hypokalemia (principal); I10 Essential (primary) hypertension
CPT/HCPCS: 36415; 80048

== ENCOUNTER → 2019-07-18 09:55 | Outpatient (CLI) | payer OTHER, SELFPAY ==
[2019-07-18 09:21] VITALS: BMI 21.9
--- NOTE | 2019-07-18 09:59 | RAD_ITS ---
STUDY: X-RAY - CERVICAL SPINE REASON FOR EXAM: Female, 43 years old. CHRONIC NECK PAIN. CERVICAL RADICULOPATHY. DDD. TECHNIQUE: 3 view(s) of the cervical spine were obtained. COMPARISON: None FINDINGS: Normal anterior atlantoaxial articulation. Normal odontoid process. Normal cervical lordosis. Normal vertebral bodies and endplates. Degenerative disc narrowing and uncovertebral arthrosis at C5-6 with posterior disc osteophyte. Minimal degenerative disc findings at other cervical levels. Mild left carotid artery calcifications. RAD/Cerv Spine 2 or 3 Views IMPRESSION: Normal alignment of the cervical spine without fracture, osteolytic or blastic bone lesion. Focal moderate degenerative disc narrowing and uncovertebral arthrosis with posterior disc osteophyte at C5-6. Minimal degenerative changes at other disc levels. Electronically Signed: Shelly Castaneda MD at 17:40 EST , Service support ,
[2019-07-23 09:58] LABS: HPV APTIMA, High Risk Negative (Negative)
== END ==
PROVIDERS: Family Provider Internal Medicine; PCP Internal Medicine; Referring Provider Internal Medicine; Visit Provider Internal Medicine
DX: M54.12 Radiculopathy, cervical region (principal); Z12.4 Encounter for screening for malignant neoplasm of cervix
CPT/HCPCS: 72040; 87624; 88175; G0145

== ENCOUNTER → 2019-07-31 13:37 | Outpatient (CLI) | payer OTHER, SELFPAY ==
[2019-07-26 16:37] VITALS: BMI 21.9
[2019-07-31 15:53] LABS: Anion Gap 4 (5-15); BUN 18 mg/dL (7-18); BUN/Creat Ratio 20.7 RATIO (10-20); Calcium,Total 9.1 mg/dL (8.5-10.1); Chloride 108 mmol/L (98-107); Creatinine, Serum 0.87 mg/dL (0.55-1.02); EST Glomerular Filtration Rate 75 mL/min (>60); Est Glom Filt Rate - Afr Amer 90 mL/min (>60); Glucose 106 mg/dL (74-106); Potassium 3.6 mmol/L (3.5-5.1); Sodium Level 141 mmol/L (136-145)
== END ==
LOC: LAB 13:38
PROVIDERS: PCP Internal Medicine; Referring Provider Internal Medicine; Visit Provider Internal Medicine
DX: I10 Essential (primary) hypertension (principal)
CPT/HCPCS: 36415; 80048

== ENCOUNTER → 2019-08-02 13:41 | Outpatient (CLI) | payer OTHER, SELFPAY ==
[2019-07-26 16:37] VITALS: BMI 21.9
--- NOTE | 2019-08-02 13:46 | RAD_ITS ---
STUDY: X-RAY - LUMBAR SPINE REASON FOR EXAM: Female, 43 years old. CHRONIC BACK PAIN, HX OF DDD TECHNIQUE: 3 view(s) of the lumbar spine were obtained. COMPARISON: None FINDINGS: Normal lumbar lordosis. There is grade 1 anterolisthesis at L4/L5 There is multilevel endplate spondylosis of the lumbar vertebrae. There is multi-level degenerative disc disease with multi-level disc space narrowing. The soft tissue structures are unremarkable. RAD/Lumbar Spine 2 or 3 Views IMPRESSION: Degenerative changes of the spine. Electronically Signed: Arturo Beach MD at 10:41 EST Tel , Service support ,
== END ==
LOC: RAD 13:42
PROVIDERS: PCP Internal Medicine; Referring Provider Internal Medicine; Visit Provider Internal Medicine
DX: M54.16 Radiculopathy, lumbar region (principal)
CPT/HCPCS: 72100

== ENCOUNTER → 2019-08-29 | Outpatient (CLI) | payer OTHER, SELFPAY ==
[2019-08-23 14:29] VITALS: BMI 23.4
--- NOTE | 2019-08-29 16:52 | MRI_ITS ---
STUDY: MRI LUMBAR SPINE WITHOUT CONTRAST REASON FOR EXAM: Female, 43 years old. back pain radiating down L leg TECHNIQUE: Standardized fat and water weighted pulse sequences were obtained in the sagittal and axial planes. COMPARISON: Lumbar spine x-rays August 02, 2019 FINDINGS: T12-L1: Normal endplates. Normal disc height, hydration and morphology. Normal bilateral facet joints. Normal central canal and bilateral lateral recesses. Normal bilateral intervertebral neural foramina. Normal lumbar lordosis. There is no substantial scoliosis. Normal conus medullaris that terminates at T12-L1 L1-2: Normal endplates. Normal disc height, hydration and morphology. Normal bilateral facet joints. Normal central canal and bilateral lateral recesses. Normal bilateral intervertebral neural foramina. L2-3: Normal endplates. Normal disc height, hydration and morphology. Normal bilateral facet joints. Normal central canal and bilateral lateral recesses. Normal bilateral intervertebral neural foramina. L3-4: Normal endplates. Normal disc height, hydration and morphology. Normal bilateral facet joints. Normal central canal and bilateral lateral recesses. Normal bilateral intervertebral neural foramina. L4-5: Grade 1 spondylolisthesis Normal endplates. Normal disc height, desiccation and mild bulging disc osteophyte complex.. Facet arthropathy and thickening of ligamenta flava.. Mild narrowing of the central canal. Moderate bilateral recess and neuroforaminal stenosis exaggerated by shortened pedicles L5-S1: Normal endplates. Normal disc height, desiccation and minor annular bulge with tiny central disc protrusion. Bilateral facet arthropathy. Normal central canal and bilateral lateral recesses. Normal bilateral intervertebral neural foramina. Normal visualized sacral ala. Normal visualized paraspinous soft tissue structures. MRI/Spine Lumbar (Routine) IMPRESSION: Spinal stenosis at L4-5 secondary to disc disease and bony hypertrophy exaggerated by shortened pedicles. Minor bulging annulus and tiny central disc protrusion at L5-S1 without significant spinal stenosis Electronically Signed: Bright Rizvi MD at 20:24 EST , Service support ,
== END | disposition home or self-care (01) ==
LOC: MRI 16:52
PROVIDERS: PCP Internal Medicine; Referring Provider Internal Medicine; Visit Provider Internal Medicine
DX: M54.16 Radiculopathy, lumbar region (principal)
CPT/HCPCS: 72148

== ENCOUNTER 2019-09-02 14:30 | Outpatient (RCR) | payer OTHER, SELFPAY ==
[2019-07-26 16:37] VITALS: BMI 21.9
[2019-08-06 13:35] VITALS: BMI 21.9
--- NOTE | 2019-08-07 15:05 | HP.PTEVAL_ITS ---
Patient's Visit Information MIGUEL CAST is a 43 year old F referred to Physical Therapy by Mateo Whitaker MD with a diagnosis of CERVICAL AND LUMBAR RADICULOPATHY. Date of Evaluation: 08/07/19 Physical Therapist: Nuzhat Kyle PT, Cert MDT - Visit Plan Frequency: 2-3x /Week Duration: 4-6 Weeks Plan: AQUATIC THERPAY FOR PAIN RELIEF, POSTURE CORRECTION/STRENGTHENING, INSTRUCTION IN APPROPRIATE BODY MECHANICS AND ACTIVITY MODIFICATIONS. DLS STARTING WITH A NEUTRAL SPINE PROGRESSING ROM TOLERATED. KASSI LE ROM, STRETCHING AND STRENGTHENING. HEP INSTRUCTION. 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 Disability: NO. Present symptoms: KASSI NECK PAIN LEFT > RIGHT. LEFT UE PAIN, NUMBNESS AND TINGLING TO FINGERS. LOW BACK PAIN LEFT > RIGHT. LEFT LE PAIN, NUMBNESS AND TINGLING. Present since: 2004. Pain Scale: WORST 10/10, LEAST 4/10. Currently: 8/10. WORSENING. Commenced as a result of: NO APPARENT REASON. Symptoms at onset: LOW BACK PAIN. Worse: WORK, AFTER SITTING, AT NIGHT, A LOT OF ACTIVITY. Better: ADVIL, ALEVE,. Disturbed sleep: YES. Previous history/Previous treatment: PHYSICAL THERAPY, OCCUPATIONAL THERAPY. NO CHIROPRACTOR. NO INJECTIONS. NO SURGERY. Coughing/sneezing/straining: POSITIVE. DIZZINESS: NO. TINNITIS: NO. NAUSEAU: NO. DIFFICULTY SWOLLOWING: NO. SOB: NO. Gait: NORMAL. Difficul ty initiating urinatin: NO. Accidents: NO. Unexplained weight loss: NO. Imaging: NECK AND BACK X-RAYS: DDD, DJD, L45 ISSUES - PER PATIENT REPORT. SEE [facility] EMR. RAD/Cerv Spine 2 or 3 Views. IMPRESSION: Normal alignment of the cervical spine without fracture, osteolytic or. blastic bone lesion. . Focal moderate degenerative disc narrowing and uncovertebral arthrosis with. posterior disc osteophyte at C5-6. Minimal degenerative changes at other. disc levels. Normal lumbar lordosis. There is grade 1 anterolisthesis at L4/L5. There is multilevel endplate spondylosis of the lumbar vertebrae. There is. multi-level degenerative disc disease with multi- level disc space. narrowing. The soft tissue structures are unremarkable. OTHER: PATIENT REPORTS SHE HAS ALSO BEEN REFERRED TO PAIN MGMT (JUWAN'T AFTER PT TODAY) AND TO A DIGITAL ASSISTANT BUT NEEDS MRI TO SEE DIGITAL ASSISTANT. - Objective Sitting/Standing Posture: POOR. Lordosis: REDUCED. Lateral shift: NO. Relevant shift: N/A. Active Correction of posture: WORSE. Other Observations: INDEP GAIT AND TRANSFERS. Motor deficit: KASSI UE'S AND LE'S 5/5 WITH MMT'ING. Sensory deficit: KASSI UE AND LE LIGHT TOUCH SENSATION INTACT AND SYMMETRICAL. ROM deficit: KASSI UE'S AND LE'S WFL. Reflexes: 2/3 KASSI UE'S AND LE'S. Dural Signs: POSITIVE LEFT UE AND LEFT LE. Lumbar mvmt loss: flex - MIN. ext - MOD. R SG - MIN. L SG - MIN. CERVICAL MVMT LOSS: FLEX - MIN. EXT - MIN. PRO - NIL. RET - MOD. RSB - MIN. LSB - MIN. R ROT - NIL. L ROT - MOD. POSTURAL STRENGTH: POOR. Core strength: POOR. Palpation: NO ACUTE CERVICAL, THORACIC OR LUMBOSACRAL REGION PAIN WITH PALPATION. TREATMENT: NEUROMUSCULAR REEDUCATION - RETRAINING OF MVMT AND POSTURE FOR SITTING, LYING AND STANDING ACTIVITIES. - Goals Goal 1:: DECREASE C/O NECK, BACK AND EXTREMITY SX'S. Goal Time Frame: 4-6 Weeks Goal 2:: IMPROVE PERSONAL CARE, LIFTING, READING, SLEEP, WORK, WALKING, SITTING, STADNING, DRIVING AND RECREATIONAL FUNCTION. Goal Time Frame: 4-6 Weeks Goal 3:: INSTRUCT IN PROPHYLAXIS - Rehabilitation Potential Rehabilitation Potential: Fair - Anticipated Interventions Patient/Client Instruction: Educate patient on: Condition, Plan of Care, Risk Factors, Benefits of Fitness Program For the Purpose of:: To improve self management Therapeutic Exercise to Include: Strength training, Body mechanics, Postural training, Flexibilty training, Gait and locomotor training, In an aquatic setting, Dynamic Lumbar Stabilization, Scapular Strength/Stabilization For the Purpose of:: To decrease pain, To increase ROM, To improve muscle performance and motor function, To increase tolerance to activity/condition/position, To improve ability of physical actions for home/community/work/leisure Thank you for the opportunity to evaluate your patient. For Medicare and Medicare HMO plans, please review the plan of care and approve it. It will need to be FAXED BACK to us at [phone] for Medicare purposes. For Medicare only, by signing this I certify the plan of care. Please let me know if there are questions or concerns regarding this plan of care. Physician Signature: Date:
--- NOTE | 2019-10-08 12:18 | HP.PT.NRP ---
MIGUEL CAST was seen in my office for initial evaluation on 08/07/19. The following Plan of Care was established for this patient: Initial Frequency: 2-3x /Week Initial Duration: 4-6 Weeks Patient/Client Instruction: Educate patient on: Condition, Plan of Care, Risk Factors, Benefits of Fitness Program For the Purpose of:: To improve self management Therapeutic Exercise to Include: Strength training, Body mechanics, Postural training, Flexibilty training, Gait and locomotor training, In an aquatic setting, Dynamic Lumbar Stabilization, Scapular Strength/Stabilization For the Purpose of:: To decrease pain, To increase ROM, To improve muscle performance and motor function, To increase tolerance to activity/condition/position, To improve ability of physical actions for home/community/work/leisure This patient was last seen in our office 09/02/19. Pertinent comments regarding their Physical therapy will appear below: This patient has not returned to Physical Therapy and is appropriate to return to MD for further follow-up as needed. At this point I will be discontinuing this patient from physical therapy. I would be happy to see this patient again in the future if found appropriate by the physician. Thank you! Nuzhat Kyle, PT, Cert MDT
== END 2019-09-02 19:00 | disposition home or self-care (01) ==
LOC: PT 14:30
PROVIDERS: PCP Internal Medicine; Referring Provider Internal Medicine; Visit Provider Internal Medicine
DX: M54.12 Radiculopathy, cervical region (principal); M54.16 Radiculopathy, lumbar region
CPT/HCPCS: 97112; 97113; 97162

== ENCOUNTER → 2019-09-07 | Outpatient (CLI) | payer OTHER, SELFPAY ==
[2019-09-02 09:32] VITALS: BMI 21.9
--- NOTE | 2019-09-04 08:02 | EKG12_ITS ---
Test Reason : PRE OP Blood Pressure : / mmHG Vent. Rate : 081 BPM Atrial Rate : 081 BPM P-R Int : 130 ms QRS Dur : 102 ms QT Int : 366 ms P-R-T Axes : 061 034 049 degrees QTc Int : 425 ms Normal sinus rhythm Normal ECG Confirmed by MICHEAL BLACKWELL, LILLI ([id number]), brands editor HARPREET DAVIS ([id number] on 09/09/2019 10:30:39 AM Referred By: Mateo Whitaker Confirmed By:LILLI BURTON MD
[2019-09-07 08:10] LABS: Internal QC Validated? YES +Cl - CLEAR BKGD; Pregnancy, Urine Negative Negative
[2019-09-07 08:26] LABS: Anion Gap 4 (5-15); BUN 22 mg/dL (7-18); Calcium,Total 8.5 mg/dL (8.5-10.1); Chloride 111 mmol/L (98-107); Creatinine, Serum 0.76 mg/dL (0.55-1.02); EST Glomerular Filtration Rate 87 mL/min (>60); Est Glom Filt Rate - Afr Amer 106 mL/min (>60); Glucose 63 mg/dL (74-106); Potassium 3.3 mmol/L (3.5-5.1); Sodium Level 142 mmol/L (136-145)
== END | disposition home or self-care (01) ==
LOC: LAB 07:41
PROVIDERS: Anesthesiology; Obstetrics & Gynecology; PCP Internal Medicine; Referring Provider Internal Medicine; Visit Provider Internal Medicine
DX: Z01.810 Encounter for preprocedural cardiovascular examination (principal); I10 Essential (primary) hypertension
CPT/HCPCS: 36415; 80048; 81025; 83735; 93005

== ENCOUNTER 2019-09-10 10:06 | Day surgery (SDC) | payer OTHER, SELFPAY ==
[2019-08-06 13:35] VITALS: BMI 21.9
[2019-09-02 09:32] VITALS: BMI 21.9
--- NOTE | 2019-09-07 03:52 | PCM.HPOB.BLA ---
- Problem List (1) Anemia Status: Acute (2) Dysmenorrhea Status: Acute Comment: worse since ablation (3) History of cervical cancer Status: Acute (4) History of endometrial ablation Status: Acute Comment: discussed options plan LAVH BS cysto. will schedule. (5) Menorrhagia with regular cycle Status: Acute (6) Abnormal Pap smear of cervix Status: Chronic Qualifiers: Comment: LGSIL per bx 2015 [place] patient unable to follow-up (7) Anxiety Status: Chronic (8) HTN (hypertension) Status: Chronic (9) Lumbar radiculopathy Status: Chronic History and Physical Date of Admission: 09/10/19 Intake Vital Signs 09/02/19 BMI 21.9 09/02/19 Height 5 ft 5 in 09/02/19 Weight: 137 lb 09/02/19 BMI 22.8 09/02/19 BP 143/85 H Intake Visit Reasons: pre op lavh Chief Complaint: pre op LAVH Pharmacy Specialist Required: No Is patient in pain?: Yes Allergies No Known Allergies Allergy (Verified 09/02/19 09:31) Medications Amlodipine Besylate 10 mg PO 1400 06/04/19 [History Confirmed 09/02/19] Hydrochlorothiazide [Hctz] 12.5 mg PO DAILY 06/04/19 [History Confirmed 09/02/19] Esomeprazole Mag Trihydrate [Nexium] 40 mg PO DAILY #30 cap 06/05/19 [Rx Confirmed 09/02/19] Sucralfate [Carafate] 1 gm PO 4X/DAY #120 tab 06/05/19 [Rx Confirmed 09/02/19] dicyclomine 20 mg tablet 20 mg PO BID #30 tab 06/10/19 [Rx Confirmed 09/02/19] losartan 100 mg tablet 100 mg PO DAILY #90 tab 08/23/19 [Rx Confirmed 09/02/19] cyclobenzaprine 10 mg tablet 10 mg PO HS 09/02/19 [History Confirmed 09/02/19] Is last menstrual period known: No Post menopausal: No Patient : No : No [facility] Medical History GERD (gastroesophageal reflux disease) (Chronic) Black stool (Acute) History of gastric ulcer (Resolved) Hemorrhoid (Acute) Anemia (Acute) Osteoarthritis (Chronic) HTN (hypertension) (Chronic) Anxiety (Chronic) HTN (hypertension) (Chronic) History of cervical cancer (Acute) Surgical History History of amputation of finger (Acute) History of section (Acute) History of colonoscopy (Acute) History of esophagogastroduodenoscopy (EGD) (Acute) History of loop electrical excision procedure (LEEP) (Acute) Family History Mother Colon cancer Diabetes Heart disease Asthma Bleeding disorder Hypertension Daughter Seizures CVA (cerebral vascular accident) Social History (Updated 09/02/19 @ 09:[address] Amy Silverman MD) Smoking Status: Current every day smoker alcohol intake: current alcohol intake frequency: holidays/special occasions only substance use type: does not use caffeine: Yes what type of physical activity do you participate in: none seatbelt use: always do you feel safe at home: Yes additional social history: [employer] in [place] HPI pre op lavh: Details: MIGUEL CAST is a 43 year old who presents for preop appointment. she has pelvic pain and irregular bleeding from endometrial ablation and is planning an LAV BS cysto. Female Reproductive History Menopausal Symptoms: No hot flashes, No night sweats, No difficulty concentrating, No change in libido Pregancy History 6 Elective abortions Hx Para 3 Spontaneous abortions 3 Hx # Term Pregnancies 3 Ectopic pregnancies Hx # Pregnancies Multiple births # of living children 3 Past Pregnancies Del. Date Name GA/Weeks Outcome Route Bth Weight Gen Labor Lgth Anesthesia [facility] Provider FOB Unknown Christopher 1992 Unknown Dianna 2001 Unknown Josr 1999 ROS Const Constitutional: Denies fatigue, fever(s), headache(s), increased appetite, poor appetite, night sweats, weight gain or weight loss ENT ENT: Denies dizziness or dry mouth Cardio Card: Denies chest pain Resp Resp: Denies cough or dyspnea GI GI: Reports as per HPI; denies abdominal pain, constipation, nausea or vomiting : Reports as per HPI; denies difficulty urinating, painful urination, hot flashes, pelvic pain, urinary frequency, urinary incontinence, urinary hesitancy, urinary urgency, vaginal discharge, vaginal dryness, vaginal odor or vaginal itching Musc Musc: Reports back pain (sees pain management) and joint swelling; denies joint pain or muscle weakness Skin Skin/Breast: Denies hair loss, change in hair, dry skin, breast lump, breast pain or breast skin changes Neuro Neuro: Denies dizziness Psych Psych: Denies anxiety, change in sex drive, depression or difficulty concentrating Endo Endo: Denies cold intolerance, excessive sweating, heat intolerance or increased thirst Shree/Lymph Hematologic/Lymphatic: Denies easy bleeding, Denies easy bruising, Denies enlarged lymph nodes Exam Const General: cooperative, healthy appearing, comfortable, no acute distress, well developed Nutritional Appearance: average body habitus Orientation: alert [facility] Head: normal to inspection, normocephalic Ears: hearing grossly normal bilaterally, external ears normal Nose: external nose normal, nares normal Face and sinus: normal facial exam Neck Neck: normal visual inspection, no lymphadenopathy, trachea midline Thyroid: thyroid normal Chest Chest palpation & inspection: normal inspection of the chest Resp Effort & Inspection: normal respiratory effort Auscultation: clear to auscultation bilaterally Cardio Rate: regular rate Rhythm: regular rhythm Heart Sounds: S1 normal, S2 normal GI Inspection: normal to inspection, non-distended Palpation: soft, no hepatosplenomegaly General: bladder normal to palpation External Female Exam: normal external appearance, normal appearance of the urethra Urethra: normal appearance of the urethra Speculum Exam - Vagina: normal appearance of the vagina, normal vaginal discharge Speculum Exam - Cervix: normal appearance of the cervix, nontender Bimanual Exam- Vagina & Uterus: bladder normal to palpation, No cervical tenderness Bimanual Exam- Adnexa, other: normal adnexae, adnexae mobile, no adnexal masses, pelvic support normal Pelvic Support: normal [facility] Cervical Spine: other Other: gross motor intact no deficits, full bilateral strength Skin General: no rashes or lesions noted Neuro General: alert, awake, moves all extremities, no focal motor deficits Motor: muscle tone normal throughout Extrem General: normal to inspection, no pedal edema Psych Appearance: grossly normal Mental Status: mental status grossly normal Affect: normal affect Speech and Movement: speech and movement normal Assessment & Plan Problems 1. Hx of cervical malignancy Z85.41 Status post LEEP in [place] about 20 years ago 2. Abnormal Pap smear of cervix R87.619 LGSIL per bx 2016 [place] patient unable to follow-up 3. Dysmenorrhea N94.6 worse since ablation 4. Menorrhagia with regular cycle N92.0 5. History of endometrial ablation Z. discussed options plan LAVH BS cysto. will schedule. Plan After discussing the patient's diagnosis and treatment plan options, patient wishes to proceed with surgical management. I have discussed with the patient the risks, benefits, and alternatives of the procedure which include but are not limited to risks of anesthesia, bleeding, infection, possible damage to bowel, bladder, or surrounding vasculature which could lead to additional surgery to evaluate any complications. Patient agrees to procedure and wishes to proceed. ACOG/uptodate references given for additional information regarding procedure. UPDATE- I have seen the patient and performed any clinically relevant updates to the history and physical exam. Amy Silverman MD Coding Level of Care Code No Charge Diagnoses Hx of cervical malignancy Z85.41 Abnormal Pap smear of cervix R87.619 Dysmenorrhea N94.6 Menorrhagia with regular cycle N92.0 History of endometrial ablation Z.
[2019-09-10] VITALS (13 sets, daily range): BP systolic 129–156; BP diastolic 61–92; PULSE 54–106; RESP 15–20; TEMP 36.6–37.2; O2SAT 94–100; BMI 22.9
[2019-09-10] MEDS: Scopolamine 1mg/72hr Patch 1 PATCH TRANSDERM. (07:00)
[2019-09-10] MEDS: Ondansetron 4 MG/2 ML Vial IV (07:00)
[2019-09-10] MEDS: Lactated Ringers 1,000 ML 40 ML IV (07:00)
[2019-09-10 11:18] LABS: Internal QC Validated? YES +Cl - CLEAR BKGD; Pregnancy, Urine Negative Negative
[2019-09-10 11:20] LABS: Bedside Glucose 82 mg/dL (70-110)
--- NOTE | 2019-09-10 11:30 | OP.PCM_ITS ---
Problem List (1) Anemia Status: Acute (2) Dysmenorrhea Status: Acute Comment: worse since ablation (3) History of cervical cancer Status: Acute (4) History of endometrial ablation Status: Acute Comment: discussed options plan LAVH BS cysto. will schedule. (5) Menorrhagia with regular cycle Status: Acute (6) Abnormal Pap smear of cervix Status: Chronic Qualifiers: Comment: LGSIL per bx 2015 [place] patient unable to follow-up (7) Anxiety Status: Chronic (8) HTN (hypertension) Status: Chronic (9) Lumbar radiculopathy Status: Chronic Report of Operation Date of Procedure: 09/10/19 Pre-Operative Diagnosis: abnormal bleeding, abnormal pap smears, previous endometrial ablation, chronic pelvic pain, previous Post-Operative Diagnosis: same Surgery/Procedure Performed:: lavh bs cysto Description of Surgical Findings:: significant scar tissue vesicouterine, omental to anterior abdominal and uterine adhesions materials clerk: Yumiko Medina Type of Anesthesia:: General Special Medications: none Specimen's removed: uterus tubes Drains: tapia Estimated Blood Loss (mL): 150 Fluids Replaced: crystalloid Description of Procedure: Patient received preoperative antibiotics and SCDs were on preoperatively. Patient was taken back to the operating room and placed in the dorsal lithotomy position. General anesthesia was induced and patient was prepped and draped in normal sterile fashion. Uterine manipulator was placed inside the uterus and Tapia catheter placed in the bladder. The umbilicus was grasped with towel clamps and an intraumbilical incision was made after injecting with quarter percent Marcaine and a Veress needle entered into the abdomen confirmed to be intra-abdominal with a low opening pressure. Abdomen was insufflated with CO2 gas and the Veress needle removed and the 5 mm trocar was placed under direct visualization without complication. Right and left lower quadrants were transilluminated and injected with quarter percent Marcaine and 5 mm ports placed under direct visualization. Pelvis was well visualized see operative findings for additional information. Bilateral fallopian tubes were identified and transected with the LigaSure device across the mesosalpinx to the level of the utero-ovarian ligament which was also transected with the LigaSure device. The broad ligament was opened up by transecting the round ligament bilaterally and skeletonizing the uterine vessels bilaterally and creating a bladder flap using the LigaSure device. significant scar tissue was seen and adhesiolysis was performed to dissect the tissue planes. The uterine arteries were transected bilaterally with good visualization of the bladder and the ureters were seen to be inferior lateral to the operative area. Attention was then paid to the vaginal portion of the procedure and the cervix was grasped with Red clamps and circumferentially injected with dilute vasopressin. A circumferential incision was made and the vaginal mucosa was mobilized off posteriorly and the cul-de-sac entered into sharply and a longneck speculum placed. The anterior cul-de-sac was then identified and entered into sharply. The uterosacral ligame nts were clamped cut and suture ligated with 0 Monocryl bilaterally followed by the cardinal ligaments which were clamped cut and suture ligated bilaterally with 0 Monocryl. The uterus serially descended and was removed without difficulty with no morcellation. Pelvic sidewall pedicles were checked and noted to have excellent hemostasis. The vaginal mucosa was reapproximated incorporating the posterior peritoneum. This was reapproximated using 0 Vicryl [id number] sutures. Excellent hemostasis was noted. The cystoscopy was then performed and bilateral ureteral strong spray was noted and the bladder was noted to have no abnormality or lesions seen. Tapia catheter was replaced and then attention paid to the abdominal portion of the procedure again. The pelvis and cul-de-sac was well visualized and no significant active bleeding noted but some raw areas were seen on the peritoneum and therefore Sarabjit was applied. Pressure was taken down and the areas visualized and noted of excellent hemostasis. All ports were removed under direct visualization without complication and the abdomen was desufflated of air. The instruments removed from the abdomen and the vagina vaginal sweep was negative. Port sites on the abdomen were closed with 4-0 Monocryl interrupted sutures and Steri's and windows were applied. She was awoken and taken recovery in stable condition. Grafts/Implants Used: none - Complications none - Admit VTE Documentation VTE Present on Admission: No VTE Mechan Device Prophylaxis: SCD's Multi Select Codes - Urinary/Genital Urinary/Genital CPT Codes: 60135 Cystoscopy, 96262 LAVH+BS/O <250gr Uterus
[2019-09-10] MEDS: Acetaminophen 500 MG Tablet 1000 MG PO ×2 (11:31→18:00)
[2019-09-10] MEDS: Celecoxib 200 MG Capsule 400 MG PO (11:32)
[2019-09-10] MEDS: Gabapentin 600 MG Tablet PO (11:32)
[2019-09-10] MEDS: Phenazopyridine 95 MG Tablet 190 MG PO (11:33)
--- NOTE | 2019-09-10 11:33 | DCINST_ITS ---
Discharge Diet: No Restrictions Discharge Activity: Return to Normal Activity, May Not Drive, May Shower May resume sexual activity in: 6-8 weeks Call your doctor if your incision/area has: Continuous Slow Oozing, Sudden Increased Bleeding, Increased Pain/ Swelling, Increased Redness, Foul Smelling Discharge Call your doctor if you observe: Fever of 101 or Higher, Inability to urinate, Inability to have a bowel movement, Using more than one pad per hour Allergies/Adverse Reactions: Allergies No Known Allergies Allergy (Verified 09/10/19 11:19) Medications to take at Discharge Amlodipine Besylate 10 mg PO 1400 06/04/19 Hydrochlorothiazide [Hctz] 12.5 mg PO DAILY 06/04/19 Esomeprazole Mag Trihydrate [Nexium] 40 mg PO DAILY #30 cap 06/05/19 Sucralfate [Carafate] 1 gm PO 4X/DAY #120 tab 06/05/19 dicyclomine 20 mg tablet 20 mg PO BID #30 tab 06/10/19 cyclobenzaprine 10 mg tablet 10 mg PO HS 09/02/19 Losartan Potassium 100 mg PO DAILY 09/05/19 Naproxen [Naprosyn] 250 - 500 mg PO Q8H PRN PRN #30 tab 09/10/19 Oxycodone HCl/Acetaminophen [Percocet 5-325] 1 - 2 tab PO Q6H PRN PRN 7 Days #15 tab 09/10/19 Bad tableOrders to be completed after discharge: Type & Screen Time Frame: 09/05/19, Facility: [facility], Location: Laboratory 12 Lead EKG [CVS] Time Frame: 09/05/19, Facility: [facility], Location: Cardiovascular Services Basic Metabolic Profile (BMP) Time Frame: 09/05/19, Facility: [facility], Location: Laboratory CBC-Complete Blood Cnt No Diff Time Frame: 09/05/19, Facility: [facility], Location: Laboratory Primary Care Physician: Mateo Whitaker MD [Primary Care Provider] - Test Results: Test results from this visit will be discussed in further detail at your follow- up appointment, if applicable. Please Follow Up With: Amy Silverman MD - [phone]
[2019-09-10] MEDS: dexAMETHasone 10 MG/ML Vial 8 MG IV (11:41)
[2019-09-10 11:56] LABS: Hematocrit 41.2 % (37-47); Hemoglobin 14.1 g/dL (12.0-15.0); Mean Corp Hgb Conc 34.2 g/dL (32-36); Mean Corpuscular Hgb 34.4 pg (27.0-32.0); Mean Corpuscular Volume 100.5 fL (81-99); Mean Platelet Vol. 9.1 fl (6.2-12.0); Platelet Count 251 K/mm3 (150-450); RBC Distribution Width CV 12.1 % (11.6-14.6); White Blood Count 9.9 K/mm3 (4.4-11.0)
[2019-09-10] MEDS: Potassium Chloride 10mEq/100mL 10 MEQ/100 ML IV.SOLN. 100 MEQ IV BOLUS ×2 (12:00→14:00)
[2019-09-10] MEDS: Cefazolin 2 GM in 0.9% Normal Saline 100 ML IV (12:00)
[2019-09-10 12:10] LABS: Anion Gap 4 (5-15); BUN 11 mg/dL (7-18); BUN/Creat Ratio 14.6 RATIO (10-20); Calcium,Total 9.4 mg/dL (8.5-10.1); Chloride 109 mmol/L (98-107); Creatinine, Serum 0.76 mg/dL (0.55-1.02); EST Glomerular Filtration Rate 88 mL/min (>60); Est Glom Filt Rate - Afr Amer 106 mL/min (>60); Estimated Creatinine Clearance 84.11 ml/min; Glucose 85 mg/dL (74-106); Potassium 3.5 mmol/L (3.5-5.1); Sodium Level 143 mmol/L (136-145)
--- NOTE | 2019-09-10 12:15 | HYST_PTH ---
PATIENT: MIGUEL CAST LOC: [facility] [place] U#:[id number] AGE/SX: 43/F ROOM: RE09/10/[address]: Dr. Amy Silverman MD : 1975 BED: DIS: 09/11/2019 SPEC #: [id number] RECD: 09/10/19 14:19 STATUS: NABIL COATESDanuta #: [id number] FOUZIA: 09/10/19 12:[address]: Amy Silverman DEPT: SURGICAL PATHOLOGY RECD BY: Gregory Gibson ENTERED: 09/11/19 09:15 SP TYPE: HYSTERECT OTHR DR: Dr. Mateo Whitaker MD Tissues: Uterus, NOS Procedures: Surgery Specimen Level V HEADER OPERATION: ERAS, laparoscopic assisted vaginal hysterectomy, bilateral salpingectomy PRE-OP DIAGNOSIS: History of cervical malignancy; abnormal pap smear; dysmenorrhea; menorrhagia; history of endometrial ablation TISSUE SUBMITTED: Uterus, bilateral fallopian tubes MICROSCOPIC DIAGNOSIS Uterus and bilateral fallopian tubes, vaginal hysterectomy and bilateral salpingectomy: Cervix - mild chronic cystic cervicitis and squamous metaplasia. -?Negative for dysplasia. -?See comment. Endometrium - proliferative endometrium. Myometrium - leiomyomas (0.5 and 3 cm in greatest dimension). -?Adenomyosis. Bilateral fallopian tubes - no pathologic diagnosis. SJ:blayne 09/12/19 COMMENT The entire cervix is examined. 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 MICROSCOPIC DESCRIPTION Slides are reviewed. GROSS DESCRIPTION Received in fixative is one container labeled with the patient's name and designated uterus, bilateral fallopian tubes. The specimen consists of a hysterectomy specimen consisting of uterus with cervix and attached bilateral fallopian tubes. The uterus with cervix weighs 167 gm and measures 10 x 8 x 6 cm. The serosal surface is anne, glistening. The ectocervical mucosa is unremarkable. The external os is slit-like in contour. The endocervical canal measures 2.5 cm in length and the endocervical mucosa is unremarkable. Sections of the cervix reveal a few cysts filled with mucoid material. The endometrial cavity is narrow and measures 5 cm in length and up to 0.6 cm in width. A focal area of fibrosis is noted in the middle portion of the endometrial cavity. The endometrium measures up to 0.1 cm in thickness. No mass lesion is identified. Sections of the uterine wall reveal an intramural nodular mass measuring 0.5 cm in diameter and one intramural to subserosal nodular mass measuring 3 cm in greatest dimension. Sections of these masses reveal anne whorled cut surfaces without areas of hemorrhage, necrosis or cystic degeneration. The uterine wall measures up to 2.5 cm in thickness. The right fallopian tube measures 5 cm in length and 0.5 cm in diameter. The fimbrial end is identified. The right fallopian tube is interrupted in the proximal end consistent with previous tubal ligation. The left fallopian tube is similar appearance to right and measures 5 cm in length and 0.5 cm in diameter. Founder And Ceo sections are submitted in 15 cassettes as follows: 1-8 - cervix like a cone (1 & 2 - 12 to 3 o'clock, 3 & 4 - 3 to 6 o'clock, 5 & 6 - 6 to 9 o'clock, 7 & 8 - 9 to 12 o'clock), 9 & 10 - anterior uterine wall (10 also contains the smaller intramural nodular mass), 11 & 12 - posterior uterine wall, 13 - larger nodular mass, 14 - right fallopian tube, 15 - left fallopian tube. / LIZZ:blayne 09/11/19 TC: 1 CPT: 18912
[2019-09-10] MEDS: Vasopressin 20 UNITS/ML Vial (13:27)
[2019-09-10] MEDS: Bupivacaine 0.25% 30 ML Vial (13:34)
[2019-09-10] MEDS: Lactated Ringers 1,000 ML 70 ML IV (14:00)
[2019-09-10] MEDS: amLODIPine 10 MG Tablet PO (16:23)
[2019-09-10] MEDS: Dicyclomine 10 MG Capsule 20 MG PO (16:23)
[2019-09-10] MEDS: Sucralfate 1 GM Tablet PO ×2 (16:23→21:32)
[2019-09-10] MEDS: oxyCODONE 5 MG Tablet PO ×2 (16:26→21:32)
[2019-09-10] MEDS: Ketorolac 30 MG/ML Syringe IV (20:07)
[2019-09-10] MEDS: Docusate Sodium 100 MG Capsule PO (21:32)
[2019-09-11] MEDS: Acetaminophen 500 MG Tablet 1000 MG PO ×2 (00:42→06:06)
[2019-09-11 02:05] VITALS: BP 120/67; PULSE 61; RESP 18; TEMP 36.8; O2SAT 98
[2019-09-11] MEDS: Ketorolac 30 MG/ML Syringe IV ×2 (02:56→08:51)
[2019-09-11] MEDS: oxyCODONE 5 MG Tablet PO (06:06)
[2019-09-11] MEDS: Sucralfate 1 GM Tablet PO (06:08)
[2019-09-11 06:37] LABS: Hematocrit 39.2 % (37-47); Hemoglobin 13.2 g/dL (12.0-15.0); Mean Corp Hgb Conc 33.7 g/dL (32-36); Mean Corpuscular Hgb 33.8 pg (27.0-32.0); Mean Corpuscular Volume 100.5 fL (81-99); Mean Platelet Vol. 9.2 fl (6.2-12.0); Platelet Count 254 K/mm3 (150-450); RBC Distribution Width CV 11.9 % (11.6-14.6); RBC Distribution Width SD 43.8 fl (35.1-43.9); White Blood Count 14.3 K/mm3 (4.4-11.0)
[2019-09-11 07:51] VITALS: O2SAT 96
--- NOTE | 2019-09-11 08:09 | PN.OBGYN_ITS ---
Subjective: Denies CP, SOB. Up to bedside, pain controlled. Tolerating PO well. - Physical Exam Vitals/I&O's: Vital Signs Temp Pulse Resp BP Pulse Ox 98.2 F 61 18 120/67 98 09/11/19 02:05 09/11/19 02:05 09/11/19 02:05 09/11/19 02:05 09/11/19 02:05 Oxygen Flow Rate (L/min) 6 Oxygen Delivery Method Room Air Weight: 138 lb 0.15 oz Body Mass Index (BMI) 22.9 Intake and Output for Last 24 Hours 09/09/19 09/10/19 09/11/19 23:59 23:59 23:59 Intake Total 2410 / 2410 1500.17 / 1500.17 Output Total 2850 / 2850 550 / 550 Balance -440 / -440 950.17 / 950.17 General: Alert, Oriented x3 Abdomen: Soft, Non-Distended, - - Dressings dry and intact Laboratory Results 09/10/19 10:50: Urine Test Negative 09/10/19 11:15: POC Glucose 82 09/10/19 11:50: WBC 9.9, RBC 4.10 L, Hgb 14.1, Hct 41.2, MCV 100.5 H, MCH 34.4 H , MCHC 34.2, RDW Std Deviation 44.0 H, RDW Coeff of Nick 12.1, Plt Count 251, MPV 9.1 09/10/19 11:50: Sodium 143, Potassium 3.5, Chloride 109 H, Carbon Dioxide 30.0, Anion Gap 4 L, BUN 11, Creatinine 0.76, Estim Creat Clear Calc 84.11, Est GFR (MDRD) Af Amer 106, Est GFR (MDRD) Non-Af 88, BUN/Creatinine Ratio 14.6, Glucose 85, Calcium 9.4 09/10/19 11:50: Blood Type A POSITIVE, Antibody Screen NEGATIVE 09/11/19 06:22: WBC 14.3 H, RBC 3.90 L, Hgb 13.2, Hct 39.2, MCV 100.5 H, MCH 33.8 H, MCHC 33.7, RDW Std Deviation 43.8, RDW Coeff of Nick 11.9, Plt Count 254, MPV 9.2 Current Medications Acetaminophen (Tylenol) 1,000 mg PO Q6 [facility] Last Admin: 09/11/19 06:06 Dose: 1,000 mg Documented by: Amlodipine Besylate (Norvasc) 10 mg PO 1400 [facility] Last Admin: 09/10/19 16:23 Dose: 10 mg Documented by: Dicyclomine HCl (Bentyl) 20 mg PO BID@1130,1630 [facility] Last Admin: 09/10/19 16:23 Dose: 20 mg Documented by: Docusate Sodium (Colace) 100 mg PO BID [facility] Last Admin: 09/10/19 21:32 Dose: 100 mg Documented by: Hydrochlorothiazide () 12.5 mg PO DAILY [facility] Sodium Chloride () 250 mls @ 15 mls/hr IV .[id number] PRN PRN Reason: Saline Flush Sodium Chloride () 250 mls @ 15 mls/hr IV .[id number] PRN PRN Reason: Additional IVPB Infusion Ketorolac Tromethamine (Toradol (Bkc)) 30 mg IV Q6H [facility] Stop: 09/12/19 03:01 Last Admin: 09/11/19 02:56 Dose: 30 mg Documented by: Losartan Potassium (Cozaar) 100 mg PO DAILY [facility] Magnesium Oxide (Mag-Ox 400) 400 mg PO DAILY PRN PRN PRN Reason: Constipation Nutritional Formula (Lactose Free) (Ensure Enlive) 120 ml PO TIDCM [facility] Ondansetron HCl (Zofran Odt) 4 mg PO Q6H PRN PRN PRN Reason: NAUSEA Oxycodone HCl (Oxyir) 5 - 10 mg PO Q4H PRN PRN PRN Reason: Pain Score 4-10/10 Last Admin: 09/11/19 06:06 Dose: 10 mg Documented by: Pantoprazole Sodium (Protonix) 40 mg PO DAILY [facility] Sodium Chloride () 10 - 40 ml IV UD PRN PRN Reason: SALINE FLUSH Sucralfate (Carafate) 1 gm PO 1HR_ACHS [facility] Last Admin: 09/11/19 06:08 Dose: 1 gm Documented by: Medical Necessity - Tobacco Use Smoking Status: Current every day smoker Tobacco Use: Cigarettes Assessment/Plan All Active Problems (Last Reviewed 09/02/19 @ 09:32 by Raquel Pozo) Black stool (Acute) History of gastric ulcer (Resolved) Hemorrhoid (Acute) Anemia (Acute) History of cervical cancer (Acute) History of endometrial ablation (Acute) Menorrhagia with regular cycle (Acute) Dysmenorrhea (Acute) Hx of cervical malignancy (Resolved) CHARLENE BS post op day #1 Routine postop care DC cath, Reg diet Discharge today after voids and stable.
[2019-09-11] MEDS: 0.9% Saline Lock 10 ML Syringe IV (08:51)
[2019-09-11 08:55] VITALS: BP 136/81; PULSE 67; RESP 16; TEMP 36.8; O2SAT 99
[2019-09-11] MEDS: hydroCHLOROthiazide 12.5mg 12.5 MG PO (08:59)
[2019-09-11] MEDS: Losartan Potassium 100 MG Tablet PO (08:59)
[2019-09-11] MEDS: Docusate Sodium 100 MG Capsule PO (08:59)
[2019-09-11] MEDS: Pantoprazole Sodium 40 MG Tablet PO (08:59)
== END 2019-09-11 11:10 | disposition home or self-care (01) ==
LOC: SDC 10:06 → AC 10:08 → MS3 09-11 07:11
PROVIDERS: PCP Internal Medicine; Referring Provider Obstetrics & Gynecology; Visit Provider Obstetrics & Gynecology
PROC: 0UT9FZZ Resection of Uterus, Via Natural or Artificial Opening With Percutaneous Endoscopic Assistance (ICD-10-PCS; CPT 52000; principal; 2019-09-10 11:50)
DX: N87.0 Mild cervical dysplasia (principal); D25.9 Leiomyoma of uterus, unspecified; N80.0 Endometriosis of uterus; N72 Inflammatory disease of cervix uteri; D64.9 Anemia, unspecified; K21.9 Gastro-esophageal reflux disease without esophagitis; M19.90 Unspecified osteoarthritis, unspecified site; I10 Essential (primary) hypertension; F41.9 Anxiety disorder, unspecified; F17.210 Nicotine dependence, cigarettes, uncomplicated; Z85.41 Personal history of malignant neoplasm of cervix uteri; Z79.899 Other long term (current) drug therapy
CPT/HCPCS: 00840; 52000; 58552; 36415; 80048; 81025; 82962; 85027; 86850; 86900; 86901; 88307; 94762; 99251; 99406; J7120; A4216; G0463; J2405

== ENCOUNTER → 2019-10-09 | Outpatient (CLI) | payer OTHER, SELFPAY ==
[2019-09-30 13:31] VITALS: BMI 22.9
[2019-10-09 10:57] LABS: Absolute Lymphocyte Count 1.67 X10^3/uL (0.83-4.51); Absolute Neutrophil Count 4.2 X10^3/uL (2.0-7.7); Basophil# 0.04 X10^3/uL; Basophil% 0.6 % (0-1); Eosinophil# 0.19 X10^3/uL; Eosinophils% 2.9 % (0-5); Hemoglobin 16.3 g/dL (12.0-15.0); Lymphocyte # 1.67 X10^3/ul (4.0); Lymphocyte % 25.4 % (19-41); Mean Corp Hgb Conc 35.4 g/dL (32-36); Mean Corpuscular Hgb 35.9 pg (27.0-32.0); Mean Corpuscular Volume 101.3 fL (81-99); Mean Platelet Vol. 9.6 fl (6.2-12.0); Monocyte# 0.41 X10^3/uL; Monocyte% 6.2 % (0-10); NRBC Flagged by Analyzer 0 % (0-5); Neutrophil # 4.24 X10^3/uL (2.7-7.7); Neutrophil % 64.4 % (47-70); Platelet Count 226 K/mm3 (150-450); RBC Distribution Width CV 11.9 % (11.6-14.6); Red Blood Count 4.54 M/mm3 (4.2-5.4); White Blood Count 6.6 K/mm3 (4.4-11.0)
[2019-10-09 11:18] LABS: Anion Gap 8 (5-15); BUN 12 mg/dL (7-18); BUN/Creat Ratio 16.1 RATIO (10-20); Calcium,Total 9.2 mg/dL (8.5-10.1); Chloride 102 mmol/L (98-107); Creatinine, Serum 0.75 mg/dL (0.55-1.02); EST Glomerular Filtration Rate 89 mL/min (>60); Est Glom Filt Rate - Afr Amer 108 mL/min (>60); Glucose 80 mg/dL (74-106); Potassium 3.3 mmol/L (3.5-5.1); Sodium Level 138 mmol/L (136-145)
== END | disposition home or self-care (01) ==
LOC: LAB 09:48
PROVIDERS: PCP Internal Medicine; Referring Provider Internal Medicine; Visit Provider Internal Medicine
DX: I10 Essential (primary) hypertension (principal); D72.829 Elevated white blood cell count, unspecified
CPT/HCPCS: 36415; 80048; 85025

== ENCOUNTER → 2019-10-25 | Outpatient (CLI) | payer OTHER, SELFPAY ==
[2019-10-22 10:42] VITALS: BMI 22.9
--- NOTE | 2019-10-25 09:50 | BI_ITS ---
MAMMOGRAPHY - BILATERAL SCREENING REASON FOR EXAM: Female, 44 years old. Routine annual screening examination. PERTINENT HISTORY: Aunt with breast cancer. TECHNIQUE: Digital bilateral breast issac (3D mammographic acquisition) in the CC and MLO projections. 2-D mediolateral oblique (MLO) and craniocaudad (CC) views of both breasts were obtained. CAD: Full Field Digital Mammography with Computer Added Detection was performed. COMPARISON: Comparison is made with prior outside examination dated December 24, 2015. FINDINGS: Breast Composition: There are scattered areas of fibroglandular density. There are no dominant masses or suspicious calcifications. No other significant abnormalities are identified. There has been no significant change since the prior study. BI/SCREEN MAMM (CAD) W/ISSAC BILAT IMPRESSION: Stable bilateral screening mammogram. Yearly follow-up mammogram recommended. (A) ASSESSMENT CATEGORY: BIRADS Category 1: Negative. A letter regarding these results will be sent to the patient by the facility within 30 days. Approximately 10% of breast cancers are not detected by mammography. A normal mammogram should not delay biopsy of a clinically suspicious abnormality. [id number] Electronically Signed: Santos Espitia, at 15:21 EDT , Service support ,
== END | disposition home or self-care (01) ==
PROVIDERS: PCP Internal Medicine; Referring Provider Nurse Practitioner Women's Health; Visit Provider Nurse Practitioner Women's Health
DX: Z12.31 Encounter for screening mammogram for malignant neoplasm of breast (principal)
CPT/HCPCS: 77063; 77067

== ENCOUNTER → 2019-11-08 | Outpatient (CLI) | payer OTHER, SELFPAY ==
[2019-10-31 14:24] VITALS: BMI 22.9
[2019-11-08 13:45] LABS: Bacteria 0 SEEN /hpf (None Seen); Mucous, Urine 0 SEEN /hpf (<or=2+); White Blood Cells 0 SEEN /hpf (0-5)
[2019-11-08 13:53] LABS: Color, Urine Yellow (Yellow); Glucose, Dipstick Normal (Normal); Ketone-Dipstick Negative (Negative); Leukocyte Esterase-Dipstick Negative /ul (Negative); Nitrite-Dipstick Negative (Negative); Occult Blood-Urine 25 /ul (Negative); Protein-Dipstick Negative (Negative); Urine Bilirubin Dipstick Negative (Negative); Urine Clarity Sl. Cloudy (Clear); Urine Urobilinogen Normal (Normal)
[2019-11-08 13:56] LABS: CRP < 2.90 mg/L (0.0-3.0); Rheumatoid Factor < 10.0 IU/mL (<15)
[2019-11-08 14:09] LABS: Red Blood Cells-Urine 0-5 SEEN /hpf (0-5); Squamous Epithelial Cells - UA 0-5 SEEN /hpf (5-10)
[2019-11-08 14:13] LABS: Erythrocyte Sedimentation Rate 2 mm/hr (0-20)
[2019-11-11 14:49] LABS: ANTINUCLEAR ANTIBODIES DIRECT Negative (Negative)
[2019-11-13 16:15] LABS: HLA B27 Negative (.)
== END | disposition home or self-care (01) ==
LOC: LABSPEC 12:47
PROVIDERS: PCP Internal Medicine; Referring Provider Internal Medicine; Visit Provider Internal Medicine
DX: M19.90 Unspecified osteoarthritis, unspecified site (principal); R30.0 Dysuria
CPT/HCPCS: 81001; 81374; 85652; 86038; 86140; 86225; 86235; 86431; 87086

== ENCOUNTER → 2020-01-21 | Outpatient (CLI) | payer OTHER, SELFPAY ==
[2020-01-21 08:07] VITALS: BMI 25.0
--- NOTE | 2020-01-21 08:12 | RAD_ITS ---
STUDY: X-RAY - CERVICAL SPINE REASON FOR EXAM: Female, 44 years old. NECK PAIN TECHNIQUE: 4 view(s) of the cervical spine were obtained. COMPARISON: Previous study of 07/18/2019 FINDINGS: And odontoid view was not obtained. The atlantoaxial articulation appears within normal limits on the submitted AP image. Normal odontoid process. Normal cervical lordosis. There is endplate spondylosis of C5 and C6. There is narrowing of the C5-6 disc space. The soft tissue structures are unremarkable. RAD/Cerv Spine 4 or 5 Views IMPRESSION: Cervical degenerative changes as detailed above. Findings appear similar to the previous study of 07/18/2019. Electronically Signed: Rosales Gongora MD at 16:52 EDT , Service support ,
== END | disposition home or self-care (01) ==
LOC: HPRAD 08:12
PROVIDERS: PCP Internal Medicine; Referring Provider Orthopaedic Surgery; Visit Provider Orthopaedic Surgery
DX: M54.2 Cervicalgia (principal)
CPT/HCPCS: 72050

== ENCOUNTER → 2020-03-03 | Outpatient (CLI) | payer OTHER, SELFPAY ==
[2020-01-21 08:07] VITALS: BMI 25.0
--- NOTE | 2020-03-03 15:55 | MRI_ITS ---
STUDY: MRI CERVICAL SPINE WITHOUT CONTRAST REASON FOR EXAM: Female, 44 years old. cervical radiculopathy, headache, neck pain, left shoulder pain TECHNIQUE: Standardized fat and water weighted pulse sequences were obtained in the sagittal and axial planes. COMPARISON: Cervical spine radiograph 01/21/2020 FINDINGS: Normal foramen magnum and brainstem-cervical cord junction. Normal craniovertebral junction. Normal anterior atlantoaxial articulation. Normal odontoid process. Normal cervical lordosis. Normal vertebral bodies and posterior osseous elements. C2-3: Normal endplates. Normal disc height, signal and morphology. Normal central canal and intervertebral neural foramina. C3-4: Normal endplates. Normal disc height, signal and morphology. Normal central canal and intervertebral neural foramina. C4-5: Normal endplates. Normal disc height, signal and morphology. Normal central canal and intervertebral neural foramina. C5-6: Normal endplates. Normal disc height, signal and morphology. 9 mm central canal and moderate narrowing of bilateral intervertebral neural foramina due to uncinate spondylosis. C6-7: Normal endplates. Normal disc height, signal and morphology. Normal central canal and intervertebral neural foramina. C7-T1: Normal endplates. Normal disc height, signal and morphology. Normal central canal and intervertebral neural foramina. Normal cervical cord. Normal visualized soft tissue structures. MRI/Spine Cervical (Routine) IMPRESSION: Central and lateral spinal stenosis at C5-6. Electronically Signed: Shamir Law MD at 0:03 EDT , Service support ,
== END | disposition home or self-care (01) ==
LOC: MRI 15:55
PROVIDERS: PCP Internal Medicine; Referring Provider Orthopaedic Surgery; Visit Provider Orthopaedic Surgery
DX: M54.12 Radiculopathy, cervical region (principal)
CPT/HCPCS: 72141